=== PATIENT | female | born 1985 | race Caucasian/White ===

== ENCOUNTER 2016-12-04 15:31 | Emergency (ER) | payer OTHER ==
[~2016-12-04] VITALS: Ht 165.1 cm; Wt 77.0 kg
[~2016-12-04 15:31] MED LIST: BECL8.7A5 INH
[2016-12-04] MEDS ORDERED: SODIUM CHLORIDE 0.9% 1,000 ML IV ONE (15:39)
[2016-12-04] MEDS ORDERED: SODIUM CHLORIDE FLUSH 10ML SYR IVF ONE ×2 (16:00→18:00)
[2016-12-04 16:42] LABS: HEMOGLOBIN 11.5 g/dL (11.7-16.4)
[2016-12-04 16:55] LABS: BLOOD UREA NITROGEN 16 mg/dL (7-18)
[2016-12-04] MEDS ORDERED: ONDANSETRON 2MG/ML, 2ML IVPush ONE (17:00)
[2016-12-04 17:29] LABS: ASPARTATE AMINO TRANSFERASE 14 U/L (15-37)
[2016-12-04 17:34] LABS: IS PT STATUS REG ER OR PRE ER? YES
[2016-12-04 18:15] VITALS: BP 121/71
== END 2016-12-04 18:54 | disposition home or self-care (01) ==
LOC: ED 17:19
DX: R07.89 Other chest pain (principal); S16.1XXA Strain of muscle, fascia and tendon at neck level, initial encounter; J45.909 Unspecified asthma, uncomplicated; X58.XXXA Exposure to other specified factors, initial encounter; Y93.89 Activity, other specified; Y99.8 Other external cause status; Y92.89 Other specified places as the place of occurrence of the external cause
CPT/HCPCS: 36415; 71010; 72050; 80053; 84484; 84703; 85025; 85610; 93005

== ENCOUNTER 2017-05-27 20:09 | Emergency (ER) | payer OTHER ==
[~2017-05-27] VITALS: Ht 165.1 cm; Wt 76.0 kg
[~2017-05-27 20:09] MED LIST changes: -BECL8.7A5 INH; +BECL8.7A7 INH
[2017-05-27] MEDS ORDERED: SODIUM CHLORIDE FLUSH 10ML SYR IVF ONE (21:00)
[2017-05-27 21:25] LABS: HEMATOCRIT 35.2 % (34.6-47.8); HEMOGLOBIN 11.5 g/dL (11.7-16.4); WHITE BLOOD COUNT 7.4 x10^3/uL (3.4-10)
[2017-05-27] MEDS ORDERED: MAALOX/HYOSCYAMINE/LIDOCAINE 45 ML BTL ONE (21:27)
[2017-05-27] MEDS ORDERED: MAALOX/HYOSCYAMINE/LIDOCAINE 45 ML BTL PO ONE (21:30)
[2017-05-27 21:35] LABS: ASPARTATE AMINO TRANSFERASE 15 U/L (15-37); BLOOD UREA NITROGEN 11 mg/dL (7-18)
[2017-05-27] MEDS ORDERED: ONDANSETRON ODT 4 MG ONE (23:00)
[2017-05-27] MEDS ORDERED: ONDANSETRON ODT 4 MG PO ONE (23:00)
[2017-05-28 00:16] VITALS: BP 112/76
== END 2017-05-28 00:34 | disposition home or self-care (01) ==
LOC: ED 23:59
DX: K29.00 Acute gastritis without bleeding (principal)
CPT/HCPCS: 36415; 74176; 76700; 80053; 81001; 83690; 84703; 85025; 87086; 99285; Q0162

== ENCOUNTER 2017-06-13 20:58 | Emergency (ER) | payer OTHER ==
[~2017-06-13] VITALS: Ht 167.6 cm; Wt 76.4 kg
[2017-06-13 21:01] VITALS: BP 122/98
[2017-06-13 21:51] LABS: HEMATOCRIT 32.9 % (34.6-47.8); HEMOGLOBIN 11.1 g/dL (11.7-16.4); WHITE BLOOD COUNT 9.4 x10^3/uL (3.4-10)
[2017-06-13] MEDS ORDERED: OMEP20TA62 PO (21:52)
[2017-06-13 22:01] LABS: BLOOD UREA NITROGEN 17 mg/dL (7-18)
[2017-06-13 22:08] LABS: ASPARTATE AMINO TRANSFERASE 16 U/L (15-37)
== END 2017-06-13 22:53 | disposition home or self-care (01) ==
LOC: ED 22:17
DX: N93.8 Other specified abnormal uterine and vaginal bleeding (principal)
CPT/HCPCS: 36415; 80053; 84703; 85025; 99284

== ENCOUNTER 2017-06-28 10:03 | Emergency (ER) | payer OTHER ==
[~2017-06-28] VITALS: Ht 160 cm; Wt 77.9 kg
[~2017-06-28 10:03] MED LIST changes: +OMEP20TA62 PO
[2017-06-28] MEDS ORDERED: SODIUM CHLORIDE 0.9% 1,000 ML IV ONE (10:23)
[2017-06-28] MEDS ORDERED: SODIUM CHLORIDE FLUSH 10ML SYR IVF ONE (10:30)
[2017-06-28 10:48] LABS: HEMOGLOBIN 10.8 g/dL (11.7-16.4); WHITE BLOOD COUNT 6.9 x10^3/uL (3.4-10)
[2017-06-28 11:01] LABS: ASPARTATE AMINO TRANSFERASE 14 U/L (15-37); BLOOD UREA NITROGEN 13 mg/dL (7-18)
[2017-06-28 11:06] LABS: PATH.CAST-FLAG NOT PRESENT; SPERM-FLAG NOT PRESENT; SRC-FLAG NOT PRESENT; XTAL-FLAG NOT PRESENT; YLC-FLAG NOT PRESENT
[2017-06-28] MEDS ORDERED: ONDANSETRON 2MG/ML, 2ML ONE (11:08)
[2017-06-28] MEDS ORDERED: ONDANSETRON 2MG/ML, 2ML IVPush ONE (11:30)
[2017-06-28] MEDS ORDERED: OMNIPAQUE 350 MG/ML, 100ML BOTTLE ONE (11:53)
[2017-06-28] MEDS ORDERED: birth control (12:02)
[2017-06-28] MEDS ORDERED: ACETAMINOPHEN 325 MG TABLET ONE (12:04)
[2017-06-28] MEDS ORDERED: ACETAMINOPHEN 325 MG TABLET PO ONE (12:30)
[2017-06-28 13:08] VITALS: BP 102/58
== END 2017-06-28 13:11 | disposition home or self-care (01) ==
LOC: ED 11:11
DX: S30.1XXA Contusion of abdominal wall, initial encounter (principal); S20.211A Contusion of right front wall of thorax, initial encounter; K21.9 Gastro-esophageal reflux disease without esophagitis; J45.909 Unspecified asthma, uncomplicated; Z88.6 Allergy status to analgesic agent; W50.1XXA Accidental kick by another person, initial encounter; Y93.89 Activity, other specified; Y92.89 Other specified places as the place of occurrence of the external cause; Y99.8 Other external cause status
CPT/HCPCS: 36415; 71101; 74177; 80053; 81001; 84703; 85025; 87086; 96361; 96374; 99285; J2405; J7030; Q9967